=== PATIENT | male | born 1930 | race American Indian/Alaskan Native ===

== ENCOUNTER 2017-03-25 20:21 | Emergency (ER) | payer MEDICARE ==
[2017-03-25 22:47] LABS: Hematocrit 35.5 % (35.5-45.6); Hemoglobin 12.1 gm/dl (11.8-15.2); Mean Corpuscular HGB Conc 34 % (32-34); Mean Corpuscular Hemoglobin 33 pg (28-32); Mean Corpuscular Volume 96 fl (84-94); Platelet Count 131 K/mm3 (140-440); Red Cell Distribution Width 14.6 % (13.2-15.2); White Blood Count 4.4 K/mm3 (4.5-11.0)
[2017-03-25 23:11] LABS: Alanine Aminotransferase 13 units/L (7-56); Albumin 4.2 g/dL (3.9-5); Albumin/Globulin Ratio 1.1 %; Alkaline Phosphatase 94 units/L (35-129); Anion Gap 16 mmol/L; BUN/Creatinine Ratio 22.85; Blood Urea Nitrogen 16 mg/dL (9-20); Calcium 9.8 mg/dL (8.4-10.2); Carbon Dioxide 25 mmol/L (22-30); Chloride 98.6 mmol/L (98-107); Glucose 113 mg/dL (75-100); Potassium 4.5 mmol/L (3.6-5.0); Sodium 135 mmol/L (137-145); Total Protein 7.9 g/dL (6.3-8.2)
[2017-03-26 01:14] LABS: Basophils % (Manual) 0 % (0.0-1.8); Blastocytes % (Manual) 0 %; Eosinophils % (Manual) 0 % (0.0-4.3)
[2017-03-26 01:15] LABS: Anisocytosis 1+; Burr Cells 1+; Diff Status Complete; Platelet Estimate Consistent w Auto
[2017-03-26 02:24] LABS: Bilirubin,Urine NEG (Negative); Blood,Urine NEG (Negative); Ketones,Urine NEG (Negative); Leukocyte Esterase,Urine NEG (Negative); Mucus,Urine FEW /HPF; Nitrite,Urine NEG (Negative); Protein,Urine <15 mg/dL mg/dL (Negative); Urobilinogen,Urine < 2.0 mg/dL (<2.0); WBC,Urine < 1.0 /HPF (0.0-6.0)
--- NOTE | 2017-03-26 06:20 | Emergency Department Report ---
ED General Adult HPI - General Chief complaint: Weakness Stated complaint: PAIN IN LEGS & LOWER BACK Time Seen by Provider: 03/26/17 06:00 Source: patient Mode of arrival: Ambulatory Limitations: No Limitations - History of Present Illness Initial comments: Patient is an 86-year-old male past medical history of hypertension who presents with lower back pain and bilateral leg pain management going on for the last 3 days. Patient states that his lower back pain as a 7 out of 10 lying in certain positions makes it worse and sitting on a pillow makes it better. He says the back pain radiating all the way down to his legs. His daughter called the cashier associate and told him to be mildly at the ED on the chance that it could be a DVT. Patient has no shortness of breath or chest pain. He currently has no back pain as sleeping on the pillow has relieved all of. Severity scale (0 -10): 0 - Related Data Home Medications Medication Instructions Recorded Confirmed Last Taken Amlodipine Besylate [Norvasc] 5 mg PO QPM 03/26/17 03/26/17 03/24/17 19:30 Aspirin [Aspirin BABY CHEW TAB] 81 mg PO QDAY 03/26/17 03/26/17 03/25/17 09:00 AtorvaSTATin [Lipitor] 20 mg PO QPM 03/26/17 03/26/17 03/25/17 19:30 Carvedilol [Coreg] 12.5 mg PO BID 03/26/17 03/26/17 03/25/17 19:30 Levocetirizine Dihydrochloride 5 mg PO QPM 03/26/17 03/26/17 03/24/17 19:30 [Xyzal] Magnesium Oxide 400 mg PO DAILY 03/26/17 03/26/17 03/25/17 09:00 Allergies Allergy/AdvReac Type Severity Reaction Status Date / Time No Known Allergies Allergy Verified 05/07/16 18:25 ED Review of Systems ROS: Stated complaint: PAIN IN LEGS & LOWER BACK Other details as noted in HPI Constitutional: denies: chills, fever Eyes: denies: eye pain, eye discharge, vision change ENT: denies: ear pain, throat pain Respiratory: denies: cough, shortness of breath, wheezing Cardiovascular: denies: chest pain, palpitations Endocrine: no symptoms reported Gastrointestinal: denies: abdominal pain, nausea, diarrhea Genitourinary: denies: urgency, dysuria Musculoskeletal: back pain. 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 - Surgical History Past Surgical History?: Yes Hx Pacemaker: Yes Hx Internal Defibrillator: Yes - Social History Smoking Status: Never Smoker Substance Use Type: Alcohol - Medications Home Medications: Home Medications Medication Instructions Recorded Confirmed Last Taken Type Amlodipine Besylate [Norvasc] 5 mg PO QPM 03/26/17 03/26/17 03/24/17 19:30 History Aspirin [Aspirin BABY CHEW TAB] 81 mg PO QDAY 03/26/17 03/26/17 03/25/17 09:00 History AtorvaSTATin [Lipitor] 20 mg PO QPM 03/26/17 03/26/17 03/25/17 19:30 History Carvedilol [Coreg] 12.5 mg PO BID 03/26/17 03/26/17 03/25/17 19:30 History Levocetirizine Dihydrochloride 5 mg PO QPM 03/26/17 03/26/17 03/24/17 19:30 History [Xyzal] Magnesium Oxide 400 mg PO DAILY 03/26/17 03/26/17 03/25/17 09:00 History ED Physical Exam - General Limitations: No Limitations General appearance: alert, in no apparent distress - Head Head exam: Present: atraumatic, normocephalic - Eye Eye exam: Present: normal appearance - ENT ENT exam: Present: mucous membranes moist - Neck Neck exam: Present: normal inspection - Respiratory Respiratory exam: Present: normal lung sounds bilaterally. Absent: respiratory distress - Cardiovascular Cardiovascular Exam: Present: regular rate, normal rhythm. Absent: systolic murmur, diastolic murmur, rubs, gallop - GI/Abdominal GI/Abdominal exam: Present: soft, normal bowel sounds - Rectal Rectal exam: Present: deferred - Extremities Exam Extremities exam: Present: normal inspection - Back Exam Back exam: Present: normal inspection - Neurological Exam Neurological exam: Present: alert, oriented X3 - Psychiatric Psychiatric exam: Present: normal affect, normal mood - Skin Skin exam: Present: warm, dry, intact, normal color. Absent: rash ED Course Vital Signs 03/25/17 03/26/17 03/26/17 21:55 01:34 03:00 Temperature 97.9 F 97.5 F L Pulse Rate 70 70 69 Respiratory 16 18 13 Rate Blood Pressure 120/81 133/83 116/71 Blood Pressure [Left] O2 Sat by Pulse 97 98 97 Oximetry 03/26/17 03/26/17 03/26/17 03:06 03:15 03:30 Temperature 98 F Pulse Rate 70 70 70 Respiratory 21 13 15 Rate Blood Pressure 112/70 114/69 Blood Pressure 123/72 [Left] O2 Sat by Pulse 99 97 98 Oximetry 03/26/17 03/26/17 03/26/17 03:45 04:00 04:15 Temperature Pulse Rate 70 70 70 Respiratory 13 12 15 Rate Blood Pressure 120/70 120/70 99/61 Blood Pressure [Left] O2 Sat by Pulse 98 98 98 Oximetry 03/26/17 03/26/17 03/26/17 04:30 04:45 05:00 Temperature Pulse Rate 70 70 70 Respiratory 12 14 12 Rate Blood Pressure 104/65 104/65 107/63 Blood Pressure [Left] O2 Sat by Pulse 99 99 99 Oximetry 03/26/17 05:15 Temperature Pulse Rate 71 Respiratory 14 Rate Blood Pressure 108/67 Blood Pressure [Left] O2 Sat by Pulse Oximetry - Reevaluation(s) Reevaluation #1: 03/26/17 06:40 ED DVT ultrasound shows compression of veins. ED Medical Decision Making - Lab Data Result diagrams: 03/25/17 22:05 03/25/17 22:05 Lab Results 03/25/17 03/25/17 03/26/17 Range/Units 22:05 22:05 01:54 WBC 4.4 L (4.5-11.0) K/mm3 RBC 3.70 (3.65-5.03) M/mm3 Hgb 12.1 (11.8-15.2) gm/dl Hct 35.5 (35.5-45.6) % MCV 96 H (84-94) fl MCH 33 H (28-32) pg MCHC 34 (32-34) % RDW 14.6 (13.2-15.2) % Plt Count 131 L (140-440) K/mm3 [place] % (Auto) Risk Control Field Representative Add Manual Diff Complete Total Counted 100 Seg Neuts % (Manual) 75.0 H (40.0-70.0) % Band Neutrophils % 1.0 % Lymphocytes % (Manual) 19.0 (13.4-35.0) % Reactive Lymphs % (Man) 0 % Monocytes % (Manual) 5.0 (0.0-7.3) % Eosinophils % (Manual) 0 (0.0-4.3) % Basophils % (Manual) 0 (0.0-1.8) % Metamyelocytes % 0 % Myelocytes % 0 % Promyelocytes % 0 % Blast Cells % 0 % Nucleated RBC % Not Reportable Seg Neutrophils # Man 3.3 (1.8-7.7) K/mm3 Band Neutrophils # 0.0 K/mm3 Lymphocytes # (Manual) 0.8 L (1.2-5.4) K/mm3 Abs React Lymphs (Man) 0.0 K/mm3 Monocytes # (Manual) 0.2 (0.0-0.8) K/mm3 Eosinophils # (Manual) 0.0 (0.0-0.4) K/mm3 Basophils # (Manual) 0.0 (0.0-0.1) K/mm3 Metamyelocytes # 0.0 K/mm3 Myelocytes # 0.0 K/mm3 Promyelocytes # 0.0 K/mm3 Blast Cells # 0.0 K/mm3 WBC Morphology Not Reportable Hypersegmented Neuts Not Reportable Hyposegmented Neuts Not Reportable Hypogranular Neuts Not Reportable Smudge Cells Not Reportable Toxic Granulation Not Reportable Toxic Vacuolation Not Reportable Dohle Bodies Not Reportable Pelger-Huet Anomaly Not Reportable Jessie Rods Not Reportable Platelet Estimate Consistent w auto Clumped Platelets Not Reportable Plt Clumps, EDTA Not Reportable Large Platelets Not Reportable Giant Platelets Not Reportable Platelet Satelliting Not Reportable Plt Morphology Comment Not Reportable RBC Morphology Not Reportable Dimorphic RBCs Not Reportable Polychromasia Not Reportable Hypochromasia Not Reportable Poikilocytosis Not Reportable Anisocytosis 1+ Microcytosis Not Reportable Macrocytosis Not Reportable Spherocytes Not Reportable Pappenheimer Bodies Not Reportable Sickle Cells Not Reportable Target Cells Not Reportable Tear Drop Cells Not Reportable Ovalocytes Not Reportable Helmet Cells Not Reportable [place] Bodies Not Reportable [place] Rings Not Reportable Jennifer Cells 1+ Bite Cells Not Reportable Crenated Cell Not Reportable Elliptocytes Not Reportable Acanthocytes (Spur) Not Reportable Rouleaux Not Reportable Hemoglobin C Crystals Not Reportable Schistocytes Not Reportable Malaria parasites Not Reportable [place] Bodies Not Reportable Hem Pathologist Commnt No Sodium 135 L (137-145) mmol/L Potassium 4.5 (3.6-5.0) mmol/L Chloride 98.6 (98-107) mmol/L Carbon Dioxide 25 (22-30) mmol/L Anion Gap 16 mmol/L BUN 16 (9-20) mg/dL Creatinine 0.7 L (0.8-1.5) mg/dL Estimated GFR > 60 ml/min BUN/Creatinine Ratio 22.85 % Glucose 113 H (75-100) mg/dL Calcium 9.8 (8.4-10.2) mg/dL Total Bilirubin 1.40 H (0.1-1.2) mg/dL AST 25 (5-40) units/L ALT 13 (7-56) units/L Alkaline Phosphatase 94 (35-129) units/L Total Protein 7.9 (6.3-8.2) g/dL Albumin 4.2 (3.9-5) g/dL Albumin/Globulin Ratio 1.1 % Urine Color Yellow (Yellow) Urine Turbidity Clear (Clear) Urine pH 6.0 (5.0-7.0) Ur Specific Mona 1.016 (1.003-1.030) Urine Protein <15 mg/dl (Negative) mg/dL Urine Glucose (UA) Neg (Negative) mg/dL Urine Ketones Neg (Negative) mg/dL Urine Blood Neg (Negative) Urine Nitrite Neg (Negative) Urine Bilirubin Neg (Negative) Urine Urobilinogen < 2.0 (<2.0) mg/dL Ur Leukocyte Esterase Neg (Negative) Urine WBC (Auto) < 1.0 (0.0-6.0) /HPF Urine RBC (Auto) 2.0 (0.0-6.0) /HPF U Epithel Cells (Auto) < 1.0 (0-13.0) /HPF Urine Mucus Few /HPF - EKG Data 03/26/17 06:21 EKG shows electronic paced rhythm with no ST segment elevation. No changes prior to old EKG - Medical Decision Making Chief medical diagnosis: Lumbar sacral strain Differential diagnosis herniated disc, metabolic abnormality, DVT EKG, CBC, CMP, urinalysis and ED bedside ultrasound. Patient has very low chance of having DVT but since cardiologists called over the phone and reevaluated patient. [id number] ultrasound is negative patient will be sent home. Critical care attestation.: If time is entered above; I have spent that time in minutes in the direct care of this critically ill patient, excluding procedure time. ED Disposition Clinical Impression: Lower back pain Qualifiers: Chronicity: unspecified Back pain laterality: bilateral Sciatica presence: unspecified whether sciatica present Qualified Code(s): M54.5 - Low back pain Disposition: DC-01 TO HOME OR SELFCARE Is pt being admited?: No Does the pt Need Aspirin: No Condition: Stable Referrals: BRANDON SUBRAMANIAN JR, MD [Primary Care Provider] - 3-5 Days
[2017-03-26 06:48] VITALS: BP 118/74
== END 2017-03-26 06:48 | disposition home or self-care (01) ==
LOC: ED 20:21
DX: M54.5 Low back pain (principal); I10 Essential (primary) hypertension; F03.90 Unspecified dementia, unspecified severity, without behavioral disturbance, psychotic disturbance, mood disturbance, and anxiety
CPT/HCPCS: 36415; 80053; 81001; 85007; 85025; 87076; 87086; 87186; 93005; 93010